=== PATIENT | female | born 1995 | race Caucasian/White ===

== ENCOUNTER 2020-12-28 16:06 | Emergency (ER) | payer BC ==
[~2020-12-28] VITALS: Ht 165.1 cm; Wt 101.7 kg
[2020-12-28] MEDS ORDERED: SODIUM CHLORIDE FLUSH 10ML SYR IVF ONE (17:00)
[2020-12-28] MEDS ORDERED: SODIUM CHLORIDE 0.9% 1,000ML IVBOLUS ONE (17:00)
[2020-12-28 17:47] LABS: BASOPHILS % (AUTO) 0 % (0-1); EOSINOPHILS % (AUTO) 1 % (1-7); LYMPHOCYTES % (AUTO) 22 % (22-44); MEAN CORPUSCULAR HEMOGLOBIN 31.6 pg (27.0-34.8); MEAN PLATELET VOLUME 8.4 fL (7.4-10.4); MONOCYTES % (AUTO) 7 % (2-9); NEUTROPHILS % (AUTO) 70 % (42-75); PLATELET COUNT 300 x10^3/uL (130-400); RED BLOOD COUNT 4.13 x10^6/uL (3.82-5.3); RED CELL DISTRIBUTION WIDTH 12.7 % (9.6-15.2)
--- NOTE | 2020-12-28 17:48 | NUR ---
PT PRESENTS TO ED REFERRED FROM GI SPECIALIST. PT BEING EVALUATED FOR DIARRHEA AND PERIUMBILICAL ABD PAIN X 2 MONTHS. PT A&O, ANXIOUS, RESPS EVEN AND UNLABORED. ALL MONITORS IN PLACE. PIV PLACED, NS INFUSING. STRAIGHT CATH URINE OBTAINED AND WALKED TO LAB. AWAITING LAB AND URINE RESULTS AT THIS TIME.
[2020-12-28 17:58] LABS: ALANINE AMINOTRANSFERASE 27 U/L (12-78); ALBUMIN 3.7 g/dL (3.4-5.0); ANION GAP 8 mmol/L (5-15); CALCIUM 9.5 mg/dL (8.5-10.1); CHLORIDE 109 mmol/L (98-107); CREATININE 0.85 mg/dL (0.55-1.02)
[2020-12-28 17:59] LABS: INTERNATIONAL NORMALIZED RATIO 1.07 (0.93-1.1); PROTHROMBIN TIME 11.4 Seconds (9.6-11.5)
[2020-12-28 18:00] LABS: ALKALINE PHOSPHATASE 57 U/L (45-117); BILIRUBIN,TOTAL 0.5 mg/dL (0.2-1.0)
[2020-12-28] MEDS ORDERED: OMNIPAQUE 350 MG/ML, 100ML BOTTLE ONE (18:00)
[2020-12-28 18:12] LABS: MICROSCOPIC AUTO
--- NOTE | 2020-12-28 18:48 | NUR ---
assumed care from Mary FELIX
--- NOTE | 2020-12-28 18:49 | NUR ---
assumed care from Mary FELIX
--- NOTE | 2020-12-28 18:55 | NUR ---
report given at bedside to RN Jordon, pt a&o, resps even and unlabored, no complaint at this time. all monitors remain in place. friend at bedside.
[2020-12-28 20:04] VITALS: BP 127/65
== END 2020-12-28 21:04 | disposition home or self-care (01) ==
LOC: ED 17:09
DX: K52.9 Noninfective gastroenteritis and colitis, unspecified (principal); N83.291 Other ovarian cyst, right side; R51.9 Headache, unspecified
CPT/HCPCS: 36415; 70450; 71045; 74177; 80053; 81001; 83605; 83690; 85025; 85610; 85730; 87040; 87086; 96360; 99285; J7030; Q9967

== ENCOUNTER 2021-01-04 17:47 | Inpatient (IN) | payer BC, OTHER ==
[~2021-01-04] VITALS: Ht 165.1 cm; Wt 102.6 kg
[2021-01-04] MEDS ORDERED: FAMOTIDINE 20 MG/2 ML IVPush ONE (18:00)
[2021-01-04] MEDS ORDERED: ONDANSETRON 2MG/ML, 2ML IVPush ONE (18:00)
[2021-01-04] MEDS ORDERED: SODIUM CHLORIDE 0.9% 1,000ML IVBOLUS ONE (18:00)
[2021-01-04] MEDS ORDERED: SODIUM CHLORIDE FLUSH 10ML SYR IVF ONE (18:00)
[2021-01-04 19:00] LABS: BASOPHILS % (AUTO) 0 % (0-1); EOSINOPHILS % (AUTO) 1 % (1-7); LYMPHOCYTES % (AUTO) 20 % (22-44); MEAN CORPUSCULAR HEMOGLOBIN 31.2 pg (27.0-34.8); MEAN CORPUSCULAR HGB CONC 34.9 g/dL (32.4-35.8); MEAN PLATELET VOLUME 8.5 fL (7.4-10.4); MONOCYTES % (AUTO) 7 % (2-9); NEUTROPHILS % (AUTO) 72 % (42-75); PLATELET COUNT 322 x10^3/uL (130-400); RED CELL DISTRIBUTION WIDTH 12.9 % (9.6-15.2)
[2021-01-04 19:01] LABS: ALANINE AMINOTRANSFERASE 55 U/L (12-78); ALBUMIN 4.2 g/dL (3.4-5.0); ANION GAP 9 mmol/L (5-15); CALCIUM 9.9 mg/dL (8.5-10.1); CHLORIDE 108 mmol/L (98-107); CREATININE 0.76 mg/dL (0.55-1.02)
[2021-01-04 19:06] LABS: ALKALINE PHOSPHATASE 58 U/L (45-117); BILIRUBIN,TOTAL 0.5 mg/dL (0.2-1.0); TOTAL PROTEIN 8.7 g/dL (6.4-8.2)
[2021-01-04] MEDS ORDERED: ONDANSETRON 2MG/ML, 2ML ONE (21:01)
[2021-01-04] MEDS ORDERED: FAMOTIDINE 20 MG/2 ML ONE (21:01)
[2021-01-04] MEDS ORDERED: MORPHINE SULFATE 4 MG/ML, 1ML IVPush PRN ×2 (21:30→23:30)
--- NOTE | 2021-01-04 21:30 | NUR ---
pt reports she has been having abdominal pain in the RUQ for "several weeks", and she has lost 20 pounds over that time. Patient states pain is 9/10 to RUQ, and is tender to touch. Patient recently had a colonoscopy due to the pain where a polup was found and an endoscopy revealed inflamed stomach.
[2021-01-04] MEDS ORDERED: MORPHINE SULFATE 4 MG/ML, 1ML ONE (22:01)
--- NOTE | 2021-01-04 22:12 | NUR ---
patient medicated per mar.
[2021-01-04 22:43] LABS: MICROSCOPIC INDICATED
[2021-01-04] MEDS ORDERED: OMNIPAQUE 350 MG/ML, 100ML BOTTLE ONE (22:58)
[2021-01-04] MEDS ORDERED: ONDANSETRON 2MG/ML, 2ML IVPush PRN (23:30)
[2021-01-04] MEDS ORDERED: SODIUM CHLORIDE 0.9% 1,000 ML IV ONE (23:30)
--- NOTE | 2021-01-04 23:39 | NUR ---
Pt to be admitted to surgical, room 456. Report called to Yesi.
[2021-01-04] MEDS ORDERED: DIPHENHYDRAMINE 50 MG/ML, 1ML ONE (23:43)
[2021-01-05] MEDS ORDERED: LABETALOL 5MG/ML, 20ML IVPush PRN
[2021-01-05] MEDS ORDERED: POLYETHYLENE GLYCOL 17 GM PACKET PO PRN
[2021-01-05] MEDS ORDERED: DIPHENHYDRAMINE 50 MG/ML, 1ML IVPush ONE
[2021-01-05] MEDS ORDERED: METOCLOPRAMIDE 5 MG/ML, 2ML IVPush PRN
[2021-01-05] MEDS ORDERED: LORazepam 2 MG/ML, 1ML IVPush PRN
[2021-01-05 00:04] VITALS: BP 115/74
[2021-01-05] MEDS ORDERED: OMEP20TA62 PO (00:13)
[2021-01-05] MEDS ORDERED: CITA20TA6 PO (00:13)
[2021-01-05] MEDS ORDERED: DICY10CA3 PO (00:13)
[2021-01-05] MEDS: LACTATED RINGERS 1,000 ML IV SCH ×2 (00:38→15:00)
[2021-01-05] MEDS ORDERED: DOXY-246 PO (00:44)
[2021-01-05] MEDS ORDERED: SUCR1TAB PO (00:44)
[2021-01-05] MEDS ORDERED: LEVO1TAB41 PO (00:44)
[2021-01-05] MEDS ORDERED: METO5TAB2 PO (00:44)
[2021-01-05] MEDS ORDERED: METR-90 PO (00:44)
[2021-01-05 05:38] LABS: BASOPHILS % (AUTO) 1 % (0-1); EOSINOPHILS % (AUTO) 2 % (1-7); LYMPHOCYTES % (AUTO) 30 % (22-44); MEAN CORPUSCULAR HEMOGLOBIN 31.9 pg (27.0-34.8); MEAN CORPUSCULAR HGB CONC 35.5 g/dL (32.4-35.8); MEAN PLATELET VOLUME 8.7 fL (7.4-10.4); MONOCYTES % (AUTO) 9 % (2-9); NEUTROPHILS % (AUTO) 59 % (42-75); PLATELET COUNT 233 x10^3/uL (130-400); RED BLOOD COUNT 3.83 x10^6/uL (3.82-5.3); RED CELL DISTRIBUTION WIDTH 13.1 % (9.6-15.2)
[2021-01-05 05:52] LABS: ANION GAP 8 mmol/L (5-15); CALCIUM 9.3 mg/dL (8.5-10.1); CHLORIDE 110 mmol/L (98-107)
[2021-01-05 06:05] LABS: CHOL/HDL RATIO 3.3; CHOLESTEROL, TOTAL 150 mg/dL (140-239); CREATININE 0.65 mg/dL (0.55-1.02); HDL CHOL % 31 % (28-40); HDL CHOLESTEROL (DIRECT) 46 mg/dL (40-60); LDL CHOLESTEROL,CALCULATED 84 mg/dL (54-169); LDL/HDL RATIO 1.8 (0.5-3.0); TRIGLYCERIDES 98 mg/dL (50-200); VLDL CHOLESTEROL 20 mg/dL (0-25)
[2021-01-05 07:33] VITALS: BP 101/62
[2021-01-05] MEDS: FAMOTIDINE 20 MG/2 ML IVPush SCH ×2 (08:42→20:28)
[2021-01-05] MEDS: OXYcodone IR 5MG TABLET PO PRN (08:47)
[2021-01-05] MEDS: ONDANSETRON 2MG/ML, 2ML IVPush PRN ×2 (10:15→20:28)
[2021-01-05 15:00] VITALS: BP 122/68
[2021-01-05] MEDS: morphine SULFATE 10 MG/ML, 1ML IVPush PRN ×2 (15:18→20:28)
[2021-01-05] MEDS ORDERED: SODIUM CHLORIDE 0.9% 1,000 ML IV SCH (17:00)
[2021-01-05 20:22] VITALS: BP 99/63
[2021-01-05] MEDS ORDERED: FAMOTIDINE 20 MG TABLET ONE (20:25)
[2021-01-05] MEDS: FAMOTIDINE 20 MG TABLET PO SCH (20:36)
[2021-01-05] MEDS: SODIUM CHLORIDE 0.9% 1,000 ML IV SCH (23:31)
[2021-01-06 02:36] VITALS: BP 106/66
[2021-01-06 06:15] LABS: CHLORIDE 109 mmol/L (98-107)
[2021-01-06] MEDS: SODIUM CHLORIDE 0.9% 1,000 ML IV SCH ×4 (06:20→21:52)
[2021-01-06 06:23] LABS: ALANINE AMINOTRANSFERASE 56 U/L (12-78); ALBUMIN 2.8 g/dL (3.4-5.0); ALKALINE PHOSPHATASE 45 U/L (45-117); ANION GAP 8 mmol/L (5-15); BILIRUBIN,TOTAL 0.6 mg/dL (0.2-1.0); CALCIUM 8.6 mg/dL (8.5-10.1); CREATININE 0.51 mg/dL (0.55-1.02); TOTAL PROTEIN 6.5 g/dL (6.4-8.2)
[2021-01-06] MEDS ORDERED: MAGNESIUM SULFATE PMX 4GM/100M 100 ML IVPB ONE (08:30)
[2021-01-06] MEDS ORDERED: REGADENOSON 0.4 MG/5 ML SYRINGE ONE (08:46)
[2021-01-06] MEDS ORDERED: SINCALIDE (KINEVAC) 5 MCG ONE (08:46)
[2021-01-06 09:59] VITALS: BP 102/65
[2021-01-06] MEDS: FAMOTIDINE 20 MG TABLET PO SCH (10:16)
[2021-01-06] MEDS: OXYcodone IR 5MG TABLET PO PRN ×2 (10:16→17:18)
[2021-01-06 13:21] VITALS: BP 100/65
[2021-01-06] MEDS: ONDANSETRON 2MG/ML, 2ML IVPush PRN ×2 (14:49→21:12)
[2021-01-06] MEDS: morphine SULFATE 10 MG/ML, 1ML IVPush PRN ×2 (14:49→21:04)
[2021-01-06 20:07] VITALS: BP 129/79
[2021-01-06] MEDS: PANTOPRAZOLE 40MG TABLET PO SCH (21:12)
[2021-01-07 02:27] VITALS: BP 109/74
[2021-01-07] MEDS: SODIUM CHLORIDE 0.9% 1,000 ML IV SCH (04:36)
[2021-01-07 05:33] LABS: CHLORIDE 112 mmol/L (98-107)
[2021-01-07 05:39] LABS: ANION GAP 8 mmol/L (5-15); CALCIUM 8.3 mg/dL (8.5-10.1); CREATININE 0.58 mg/dL (0.55-1.02)
[2021-01-07 07:00] VITALS: BP 110/79
[2021-01-07] MEDS: morphine SULFATE 10 MG/ML, 1ML IVPush PRN (09:15)
[2021-01-07] MEDS: PANTOPRAZOLE 40MG TABLET PO SCH ×2 (09:16→20:23)
[2021-01-07] MEDS: ACETAMINOPHEN 325 MG TABLET PO PRN ×2 (12:15→21:32)
[2021-01-07] MEDS: LACTATED RINGERS 1,000 ML IV SCH ×2 (12:16→18:41)
[2021-01-07] MEDS: OXYcodone IR 5MG TABLET PO PRN ×2 (12:16→21:31)
[2021-01-07 13:35] VITALS: BP 127/83
[2021-01-07] MEDS: ONDANSETRON 2MG/ML, 2ML IVPush PRN (17:00)
[2021-01-07 19:38] VITALS: BP 111/77
[2021-01-07] MEDS: MELATONIN 5 MG TABLET PO PRN (21:31)
[2021-01-07] MEDS ORDERED: PROMETHAZINE 25 MG/ML, 1ML IM PRN (21:35)
[2021-01-07] MEDS ORDERED: PROMETHAZINE 25 MG/ML, 1ML ONE (21:44)
[2021-01-08] MEDS: LACTATED RINGERS 1,000 ML IV SCH ×4 (01:50→22:09)
[2021-01-08 03:39] VITALS: BP 104/70
[2021-01-08 05:52] LABS: ANION GAP 9 mmol/L (5-15); CALCIUM 9.3 mg/dL (8.5-10.1); CHLORIDE 110 mmol/L (98-107)
[2021-01-08 05:53] LABS: CREATININE 0.53 mg/dL (0.55-1.02)
[2021-01-08 07:28] VITALS: BP 110/75
[2021-01-08] MEDS: OXYcodone IR 5MG TABLET PO PRN ×2 (09:35→22:09)
[2021-01-08] MEDS: PANTOPRAZOLE 40MG TABLET PO SCH ×2 (09:35→20:51)
[2021-01-08] MEDS: ACETAMINOPHEN 325 MG TABLET PO PRN ×2 (09:35→22:08)
[2021-01-08 14:35] VITALS: BP 113/80
[2021-01-08 19:25] VITALS: BP 108/74
[2021-01-08] MEDS: MELATONIN 5 MG TABLET PO PRN (20:51)
[2021-01-09 02:59] VITALS: BP 105/71
[2021-01-09] MEDS: LACTATED RINGERS 1,000 ML IV SCH ×2 (04:46→09:19)
[2021-01-09 07:30] VITALS: BP 113/80
[2021-01-09] MEDS: PANTOPRAZOLE 40MG TABLET PO SCH (09:18)
[2021-01-09] MEDS ORDERED: OXYC5TAB98 PO (11:30)
[2021-01-09] MEDS: ACETAMINOPHEN 325 MG TABLET PO PRN (11:52)
== END 2021-01-09 12:10 | disposition home or self-care (01) | DRG 391 ==
LOC: ED 22:02 → EDIP 23:12 → INTOOBSV 23:12 → OBSVTOIN 23:12 → 4NE 23:54 → UNDODISOB 01-09 12:10
PROVIDERS: ADMIT Internal Medicine; ATTEND Internal Medicine
DX: K29.70 Gastritis, unspecified, without bleeding (principal); K85.00 Idiopathic acute pancreatitis without necrosis or infection; K85.10 Biliary acute pancreatitis without necrosis or infection; K44.9 Diaphragmatic hernia without obstruction or gangrene; E66.9 Obesity, unspecified; K58.0 Irritable bowel syndrome with diarrhea; K63.5 Polyp of colon; N80.8 Other endometriosis; K80.20 Calculus of gallbladder without cholecystitis without obstruction; Z68.37 Body mass index [BMI] 37.0-37.9, adult
CPT/HCPCS: 36415; 74177; 74181; 76700; 78226; 80048; 80053; 80061; 81001; 83036; 83690; 83735; 84100; 84443; 84703; 85025; 86301; 87086; 96374; G0378; J2405; J2550; J2785; Q9967; A9537; J2060; J2270; J2765; J2805; J3475; J7030; J7120

== ENCOUNTER 2021-01-13 17:38 | Emergency (ER) | payer BC, OTHER ==
[~2021-01-13] VITALS: Ht 165.1 cm; Wt 99.8 kg
[~2021-01-13 17:38] MED LIST: CITA20TA6 PO; DICY10CA3 PO; DOXY-246 PO; LEVO1TAB41 PO; METO5TAB2 PO; METR-90 PO; OMEP20TA62 PO; OXYC5TAB98 PO; SUCR1TAB PO
--- NOTE | 2021-01-13 21:01 | NUR ---
PT AMBULATED TO ROOM 37. NADN. VSS. AAOX4. PT HOOKED UP TO MONITOR.
[2021-01-13] MEDS ORDERED: SODIUM CHLORIDE 0.9% 1,000ML IVBOLUS ONE (21:30)
[2021-01-13] MEDS ORDERED: KETOROLAC 30 MG/1 ML IVPush ONE (21:30)
[2021-01-13] MEDS ORDERED: KETOROLAC 30 MG/1 ML ONE (21:45)
--- NOTE | 2021-01-13 22:02 | NUR ---
BLOOD AND URINE COLLECTED AND SENT TO LAB
[2021-01-13 22:07] LABS: MICROSCOPIC NOT IND
[2021-01-13 22:10] LABS: BASOPHILS % (AUTO) 0 % (0-1); EOSINOPHILS % (AUTO) 2 % (1-7); LYMPHOCYTES % (AUTO) 27 % (22-44); MEAN CORPUSCULAR HEMOGLOBIN 31.5 pg (27.0-34.8); MEAN CORPUSCULAR HGB CONC 34.4 g/dL (32.4-35.8); MEAN PLATELET VOLUME 8.5 fL (7.4-10.4); MONOCYTES % (AUTO) 9 % (2-9); NEUTROPHILS % (AUTO) 62 % (42-75); PLATELET COUNT 295 x10^3/uL (130-400); RED BLOOD COUNT 4.57 x10^6/uL (3.82-5.3); RED CELL DISTRIBUTION WIDTH 13.1 % (9.6-15.2)
[2021-01-13 22:18] LABS: ALANINE AMINOTRANSFERASE 71 U/L (12-78); ALBUMIN 3.9 g/dL (3.4-5.0); ANION GAP 6 mmol/L (5-15); CALCIUM 9.2 mg/dL (8.5-10.1); CHLORIDE 108 mmol/L (98-107); CREATININE 0.81 mg/dL (0.55-1.02)
[2021-01-13 22:22] LABS: ALKALINE PHOSPHATASE 69 U/L (45-117); BILIRUBIN,TOTAL 0.5 mg/dL (0.2-1.0); TOTAL PROTEIN 8.3 g/dL (6.4-8.2)
[2021-01-13 23:41] VITALS: BP 143/93
== END 2021-01-14 00:20 | disposition home or self-care (01) ==
LOC: ED 21:39
DX: R10.84 Generalized abdominal pain (principal)
CPT/HCPCS: 36415; 80053; 81003; 83690; 84703; 85025; 96361; 96374; 99283; J1885; J7030